=== PATIENT | female | born 2000 | race Caucasian/White ===

== ENCOUNTER → 2018-09-02 | Outpatient (CLI) | payer BC ==
--- NOTE | 2018-09-02 10:28 | RAD ---
Left breast ultrasound, 09/02/2018: History: Breast lump The patient reports a prior area of palpable concern in the upper inner quadrant which she can no longer feel. A targeted ultrasound exam of that area was performed. Heterogeneous fibroglandular shadows are present. No breast mass is seen. IMPRESSION: The targeted ultrasound exam of the upper inner left breast reveals no abnormality. Clinical surveillance is suggested.
== END | disposition home or self-care (01) ==
LOC: US 09:31
PROVIDERS: ATTEND Obstetrics & Gynecology
DX: N63.20 Unspecified lump in the left breast, unspecified quadrant (principal)
CPT/HCPCS: 76641